=== PATIENT | male | born 2000 | race Hispanic/Latino ===

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

== ENCOUNTER 2024-08-21 12:52 | Emergency (ER) | payer BC, MEDICARE ==
[~2024-08-21] VITALS: Ht 175.3 cm; Wt 68.0 kg
[2024-08-21 13:00] VITALS: PULSE 73; RESP 18; TEMP 98.8; O2SAT 99
[2024-08-21 14:03] LABS: STREPTOCOCCUS GRP A ANTIGEN NEGATIVE (NEGATIVE)
[2024-08-21 14:10] LABS: CORONAVIRUS COVID-19 AG NEGATIVE (NEGATIVE); INFLUENZA A AG NEGATIVE (NEGATIVE); INFLUENZA B AG NEGATIVE (NEGATIVE)
== END 2024-08-21 14:33 | disposition home or self-care (01) ==
LOC: ER 13:12
DX: J30.2 Other seasonal allergic rhinitis (principal); R09.81 Nasal congestion; K21.9 Gastro-esophageal reflux disease without esophagitis; Z11.52 Encounter for screening for COVID-19
CPT/HCPCS: 83518; 87070; 99283

== ENCOUNTER → 2024-10-01 | Outpatient (REF) | payer BC ==
[~2024-10-01] MED LIST: IOPAMIDOL 370 MG/ML 100 ML INFUS..BTL INJ ONE
== END ==
LOC: CT 16:16
PROVIDERS: ATTEND Surgery
DX: R10.9 Unspecified abdominal pain (principal); K57.90 Diverticulosis of intestine, part unspecified, without perforation or abscess without bleeding; K76.0 Fatty (change of) liver, not elsewhere classified
CPT/HCPCS: 74177; Q9967

== ENCOUNTER → 2025-02-03 | Day surgery (SDC) | payer BC ==
[~2025-02-03] MED LIST changes: +FENTANYL CITRATE/PF 100MCG/2 ML INJ ONE; +HYOSCYAMINE SULFATE 0.5 MG/ML INJ ONE; -IOPAMIDOL 370 MG/ML 100 ML INFUS..BTL INJ ONE; +LIDOCAINE HCL 2% LOCAL INJ 5 ML SDV VIAL INJ ONE; +METOCLOPRAMIDE HCL 10 MG/2ML VIAL ONE; +MIDAZOLAM HCL 2 MG/2 ML VIAL ONE; +PROBIOTIC & AC1 EACH PO; +PROPOFOL IV EMULSION 50 ML IV ONE
[2025-02-03] MEDS: LACTATED RINGER'S 1,000 ML ONE (13:29)
[2025-02-03 15:19] VITALS: TEMP 98.3
[2025-02-03 15:45] VITALS: BP 129/82; PULSE 89; RESP 15; O2SAT 100
[2025-02-06 08:12] LABS: ENDOMYSIAL ANTIBODIES, IGA Negative (Negative)
[2025-02-06 12:08] LABS: TISSUE TRANSGLUTAMINASE IGA AB <2 U/mL (0-3)
== END | disposition home or self-care (01) ==
LOC: OR 02-01 10:44
PROVIDERS: ATTEND Internal Medicine Gastroenterology
DX: K29.50 Unspecified chronic gastritis without bleeding (principal); K22.10 Ulcer of esophagus without bleeding; K62.89 Other specified diseases of anus and rectum; K21.9 Gastro-esophageal reflux disease without esophagitis; K59.09 Other constipation; K64.8 Other hemorrhoids
CPT/HCPCS: 43239; 45380; 82784; 83516; 86256; J1980; J2003; J2250; J2470; J2704; J2765; J3010; J7121; 45378